=== PATIENT | male | born 1955 | race Caucasian/White ===

== ENCOUNTER 2017-09-05 17:40 | Emergency (ER) | payer BC ==
[~2017-09-05] VITALS: Ht 203.2 cm; Wt 86.8 kg
[~2017-09-05 17:40] MED LIST: ASPI325T6; ASPIRIN 32325 MG/TAB PO; ASPIRIN 81M81 MG/TA2 PO; ASPIRIN E.C. 8181 MG PO; BETAPACE 80MG80 MG PO; LOPRESSOR 225 MG/TAB PO; MOBIC15 MG PO; MULTIPLE VITAMI1 CAP PO; MVI; NO HOME MEDICATIONS; SOTALOL80 MG PO; ZOCOR40 MG PO
[2017-09-05 18:25] LABS: CALCIUM 9.2 mg/dL (8.4-10.2); CREATININE, serum 1.09 mg/dL (0.66-1.25); MAGNESIUM 2.2 mg/dL (1.6-2.3)
[2017-09-05] MEDS ORDERED: TOPROL XL 25MG25 MG PO (18:47)
[2017-09-05 19:36] VITALS: BP 121/80; PULSE 60
== END 2017-09-05 19:33 | disposition home or self-care (01) ==
LOC: COL.ER 17:40
PROVIDERS: Emergency Medicine
DX: I47.1 Supraventricular tachycardia (principal); F41.9 Anxiety disorder, unspecified; I10 Essential (primary) hypertension; F32.9 Major depressive disorder, single episode, unspecified; Z98.890 Other specified postprocedural states

== ENCOUNTER → 2017-09-25 | Outpatient (CLI) | payer BC ==
[~2017-09-25] MED LIST changes: +TOPROL XL 25MG25 MG PO
[2017-09-25 19:20] LABS: HEMATOCRIT 40.6 % (42.0-52.0); HEMOGLOBIN 13.6 g/dl (13.5-18.0); MEAN CELL VOLUME 85 fl (80.0-100.0); MEAN CORPUSCULAR HEMOGLOBIN 29 pg (27.0-31.0); MEAN CORPUSCULAR HGB CONC 34 g/dl (33.0-37.0); MEAN PLATELET VOLUME 9.6 fl (7.4-10.4); PLATELET COUNT 241 K/mm3 (130-400); RED BLOOD COUNT 4.77 M/mm3 (4.20-5.60); REDCELL DISTRIBUTION WIDTH-CV 13.9 % (11.5-14.5)
[2017-09-25 19:30] LABS: ANION GAP 9 mmol/L (7-16); BLOOD UREA NITROGEN 19 mg/dL (9-20); CALCIUM 9.2 mg/dL (8.4-10.2); CARBON DIOXIDE 27 mmol/L (22-30); CHLORIDE 105 mmol/L (98-107); GLUCOSE 86 mg/dL (74-106); MAGNESIUM 2.1 mg/dL (1.6-2.3); PHOSPHOROUS 3.4 mg/dL (2.5-4.5); POTASSIUM 3.8 mmol/L (3.4-5.0); SODIUM 140 mmol/L (137-145)
[2017-09-25 19:43] LABS: TROPONIN-I < 0.012 ng/mL (0.000-0.034)
== END ==
LOC: COL.LAB 19:00
PROVIDERS: Internal Medicine Interventional Cardiology
DX: I47.1 Supraventricular tachycardia (principal)

== ENCOUNTER 2018-08-31 15:14 | Emergency (ER) | payer BC ==
[~2018-08-31] VITALS: Ht 203.2 cm; Wt 90.9 kg
[2018-08-31 15:17] VITALS: TEMP 97.2
[2018-08-31 15:57] LABS: BASO % 0.5 % (0.0-2.0); EOS # 0.1 (0.0-0.7); EOS % 1.2 % (0-4.0); GRAN # 3.6 (1.4-6.5); GRAN % 61.5 % (42.2-75.2); HEMATOCRIT 41.6 % (42.0-52.0); HEMOGLOBIN 13.6 g/dl (13.5-18.0); LYMPH # 1.7 (1.2-3.4); LYMPH % 29.7 % (20.0-51.0); MEAN CELL VOLUME 87 fl (80.0-100.0); MEAN CORPUSCULAR HEMOGLOBIN 28 pg (27.0-31.0); MEAN CORPUSCULAR HGB CONC 33 g/dl (33.0-37.0); MEAN PLATELET VOLUME 9.6 fl (7.4-10.4); MONO # 0.4 (0.1-0.6); MONO % 6.9 % (1.7-9.3); PLATELET COUNT 242 K/mm3 (130-400); RED BLOOD COUNT 4.81 M/mm3 (4.20-5.60); REDCELL DISTRIBUTION WIDTH-CV 13.8 % (11.5-14.5)
[2018-08-31 16:04] LABS: PROTHROMBIN TIME 11.2 SECONDS (9.7-12.8)
[2018-08-31 16:06] LABS: PARTIAL THROMBOPLASTIN TIME 31.7 SECONDS (26.0-37.0)
[2018-08-31 16:12] LABS: ALANINE AMINOTRANSFERASE 17 U/L (21-72); ALBUMIN 3.9 gm/dL (3.5-5.0); ALKALINE PHOSPHATASE 57 U/L (50-136); ANION GAP 11 mmol/L (7-16); AST,SGOT 26 U/L (15-37); BILIRUBIN,TOTAL 0.4 mg/dL (0.0-1.0); BLOOD UREA NITROGEN 19 mg/dL (9-20); CALCIUM 9.1 mg/dL (8.4-10.2); CARBON DIOXIDE 22 mmol/L (22-30); CHLORIDE 106 mmol/L (98-107); CREATININE, serum 1.01 (0.66-1.25); GLUCOSE 83 mg/dL (74-106); SODIUM 139 mmol/L (137-145); TOTAL PROTEIN 6.9 gm/dL (6.4-8.2)
[2018-08-31 16:13] LABS: C-REACTIVE PROTEIN < 0.5 mg/dL (0.0-0.9)
[2018-08-31 17:26] VITALS: BP 157/96; PULSE 74
== END 2018-08-31 17:25 | disposition home or self-care (01) ==
LOC: COL.ER 15:14
PROVIDERS: Emergency Medicine
DX: S91.032A Puncture wound without foreign body, left ankle, initial encounter (principal); I10 Essential (primary) hypertension; F17.210 Nicotine dependence, cigarettes, uncomplicated; X58.XXXA Exposure to other specified factors, initial encounter
CPT/HCPCS: J7030

== ENCOUNTER 2019-02-20 07:06 | Day surgery (SDC) | payer BC ==
[~2019-02-20] VITALS: Ht 203.2 cm; Wt 90.9 kg
[2019-02-20 07:23] VITALS: BP 136/86; PULSE 67; TEMP 97.8
[2019-02-20] MEDS ORDERED: VERAPAMIL 440 MG/TAB PO (07:49)
[2019-02-20] MEDS ORDERED: ASPIRIN 32325 MG/TAB PO (07:49)
[2019-02-20 08:40] VITALS: BP 131/89; PULSE 61; TEMP 97
--- NOTE | 2019-02-20 08:40 | NUR ---
PT TO BAY2 VIA CART FROM ENDO LAB, ABLE TO SIT ON SIDE OF CART, BUT STATES IS "QUEEZY" AND FEELS WEAK, STOOD UP AND PIVITED TO CHAIR, CALL LIGHT IN REACH, RECLINES SOME IN CHAIR, HAS DRY HEAVES, ZOFRAN 4MG IV GIVEN AT THIS TIME
[2019-02-20 08:55] VITALS: BP 148/87; PULSE 69
[2019-02-20 09:10] VITALS: BP 118/68; PULSE 99
--- NOTE | 2019-02-20 09:10 | NUR ---
DR OCHOA SEE PT AND TALK WITH HIM ON RESULTS, PT IS AWAKE, REQUESTS SPRITE FOR STOMACH
[2019-02-20 09:25] VITALS: BP 118/79; PULSE 57
[2019-02-20 09:55] VITALS: BP 118/67; PULSE 58
--- NOTE | 2019-02-20 10:00 | NUR ---
PT HAD CLEAR EMESIS, INSTRUCTED PT NOT TO TAKE SPRITE, DR DAY IN UNIT, NEW ORDER FOR ZOFRAN 4MG 0DT GIVEN ORDERED. PT UP IN ROOM, DRESSED, REVIEWED DISCHARGE INST. WITH PT ON DIET, ACTIVITY, PRECAUTIONS AND RESULTS AND INFORMATION SENT HOME WITH HIM.
--- NOTE | 2019-02-20 10:20 | NUR ---
PT UP IN W/C, NO FURTHER EMESIS, DISCHARGED VIA W/C TO [facility] FRIEND
== END 2019-02-20 10:20 | disposition home or self-care (01) ==
LOC: SDCO 07:06
DX: Z12.11 Encounter for screening for malignant neoplasm of colon (principal); K57.30 Diverticulosis of large intestine without perforation or abscess without bleeding; K64.1 Second degree hemorrhoids; E78.00 Pure hypercholesterolemia, unspecified; F41.9 Anxiety disorder, unspecified; F32.9 Major depressive disorder, single episode, unspecified; Z88.1 Allergy status to other antibiotic agents; Z86.010 Personal history of colon polyps
CPT/HCPCS: A6456; J2250; J2405; J3010; J7030

== ENCOUNTER → 2021-08-21 | Outpatient (CLI) | payer MEDICARE, BC ==
[~2021-08-21] MED LIST changes: +VERAPAMIL 440 MG/TAB PO
== END ==
LOC: COL.RAD 10:01
DX: Z13.6 Encounter for screening for cardiovascular disorders (principal); F17.201 Nicotine dependence, unspecified, in remission

== ENCOUNTER 2022-01-23 12:52 | Emergency (ER) | payer MEDICARE, BC ==
[~2022-01-23] VITALS: Ht 198.1 cm; Wt 91.8 kg
[2022-01-23 13:12] VITALS: TEMP 97.5
[2022-01-23 14:46] LABS: BASO % 0.3 % (0.0-2.0); EOS # 0.1 K/mm3 (0.0-0.7); EOS % 0.6 % (0.0-4.0); GRAN # 6.9 K/mm3 (1.4-6.5); GRAN % 76.1 % (42.2-75.2); HEMATOCRIT 42.8 % (42.0-52.0); LYMPH # 1.4 K/mm3 (1.2-3.4); LYMPH % 15.2 % (20.0-51.0); MEAN CELL VOLUME 88 fl (80.0-100.0); MEAN CORPUSCULAR HEMOGLOBIN 29 pg (27-31); MEAN CORPUSCULAR HGB CONC 33 g/dl (33.0-37.0); MEAN PLATELET VOLUME 9.7 fl (7.4-10.4); MONO # 0.7 K/mm3 (0.1-0.6); MONO % 7.6 % (1.7-9.3); PLATELET COUNT 275 K/mm3 (130-400); RED BLOOD COUNT 4.87 M/mm3 (4.20-5.60)
[2022-01-23 15:08] LABS: COLLECTION METHOD CLEAN CATCH
[2022-01-23 15:14] LABS: URINE APPEARANCE Clear (CLEAR/HAZY); URINE COLOR Yellow (YELLOW)
[2022-01-23 15:15] LABS: URINE BLOOD TRACE-INTACT (NEGATIVE); URINE GLUCOSE Negative (NEGATIVE); URINE KETONE 1+ (NEGATIVE); URINE NITRATE Negative (NEGATIVE); URINE PROTEIN(semi-quant) Negative (NEGATIVE); URINE UROBILINOGEN 0.2 E.U/dL (0.2-1.0)
[2022-01-23 15:18] LABS: ALBUMIN 3.9 gm/dL (3.4-4.8); BILIRUBIN,TOTAL 0.9 mg/dL (0.2-1.2); C-REACTIVE PROTEIN 0.11 mg/dL (0.00-0.50); CALCIUM 9.2 mg/dL (8.4-10.2); CREATININE, serum 0.85 mg/dL (0.72-1.25)
[2022-01-23 15:29] LABS: MUCOUS Present (NOT PRESENT); SQUAMOUS EPITHELIAL None Seen /hpf (0-10); URINE BACTERIA Rare /hpf (NONE SEEN)
[2022-01-23 16:04] VITALS: BP 142/86; PULSE 67
== END 2022-01-23 16:05 | disposition home or self-care (01) ==
LOC: COL.ER 12:52
PROVIDERS: Physician Assistant
DX: R19.5 Other fecal abnormalities (principal); R10.31 Right lower quadrant pain; I87.2 Venous insufficiency (chronic) (peripheral); Z79.01 Long term (current) use of anticoagulants; Z91.040 Latex allergy status
CPT/HCPCS: J7030

== ENCOUNTER 2022-02-09 11:06 | Day surgery (SDC) | payer MEDICARE, BC ==
[~2022-02-09] VITALS: Ht 198.1 cm; Wt 88.1 kg
[~2022-02-09 11:06] MED LIST changes: +CALAN120 MG PO; +LIPITOR20 MG PO; +LOVENOX 4040 MG/0.4 SQ; -MULTIPLE VITAMI1 CAP PO; +MULTIPLE VITAMI1 TA5 PO; +XARELTO20 MG PO
[2022-02-09 12:14] VITALS: BP 146/71; PULSE 67; TEMP 97.4
[2022-02-09] MEDS ORDERED: NORCO 325 MG-51 TAB PO (15:15)
[2022-02-09] MEDS ORDERED: MOTRIN 600600 MG/TAB PO (15:16)
[2022-02-09 15:45] VITALS: BP 137/72; PULSE 66; TEMP 98
[2022-02-09 16:00] VITALS: BP 135/68; PULSE 70
[2022-02-09 16:15] VITALS: BP 135/69; PULSE 67
[2022-02-09 16:30] VITALS: BP 134/64; PULSE 57
[2022-02-09 16:47] VITALS: BP 137/72; PULSE 69; TEMP 97.9
--- NOTE | 2022-02-09 17:15 | NUR ---
1545-PT TO BAY 6 PER CART FROM PACU. REPORT RECEIVED. VS OBTAINED. CALL LIGHT WITHIN REACH. PT DENIES ANY OTHER NEEDS AT THIS TIME. 1600-PT TOLERATING COFFEE AND PUDDING. PT CONTINUES TO DENY ANY NEEDS 1635-IV DC'D AT THIS TIME. 1645-DISCHARGE EDUCATION COMPLETED WITH PT. VERBALIZED UNDERSTANDING OF HOME AND FOLLOW UP CARE. ALL QUESTIONS ANSWERED. DISCHARGE PAPERWORK GIVEN TO PT. 1715-PT OFF UNIT PER WHEELCHAIR. PT DISCHARGED TO HOME WITH FRIEND PER PERSONAL VEHICLE.
== END 2022-02-09 17:15 | disposition home or self-care (01) ==
LOC: SDCO 11:06
DX: K40.90 Unilateral inguinal hernia, without obstruction or gangrene, not specified as recurrent (principal)
CPT/HCPCS: C1781; J0690; J1100; J2405; J2704; J2710; J3010; J7120

== ENCOUNTER → 2023-08-08 | Day surgery (SDC) | payer MEDICARE, BC ==
[~2023-08-08] MED LIST changes: +Esmolol 10 MG/ML 10 ML VIAL IV ONE; +Glycopyrrolate 0.2 MG/ML 1 ML VIAL IV ONE; +LR 1,000 ML IV SCH; +Lidocaine PF 2% (20 MG/ML) 5 ML VIAL IV ONE; +MOTRIN 600600 MG/TAB PO; +NORCO 325 MG-51 TAB PO; +Ondansetron 4 MG/2 ML VIAL IV ONE; +Ondansetron 4 MG/2 ML VIAL IV PRN
[2023-08-08 13:37] VITALS: BP 121/84; PULSE 91; TEMP 97
--- NOTE | 2023-08-12 14:58 | NUR ---
Due to downtime, documentation on EMR completed post-care by SHELBY Rick; refer to scanned downtime paper forms for full care information.
== END | disposition home or self-care (01) ==
LOC: SDCO 09:15
DX: Z12.11 Encounter for screening for malignant neoplasm of colon (principal); Z86.010 Personal history of colon polyps; K57.30 Diverticulosis of large intestine without perforation or abscess without bleeding; K64.8 Other hemorrhoids; Z85.72 Personal history of non-Hodgkin lymphomas; Z87.891 Personal history of nicotine dependence
CPT/HCPCS: J1805; J2405; J2704; J7120